=== PATIENT | male | born 1985 | race Caucasian/White ===

== ENCOUNTER 2017-01-29 20:02 | Outpatient (CLI) | payer MEDICARE, MEDICAID | END 2017-01-30 09:15 | disposition home or self-care (01) | LOC: SLEEP 20:02 | PROVIDERS: ATTEND Psychologist | DX: G47.33 Obstructive sleep apnea (adult) (pediatric) (principal); I10 Essential (primary) hypertension | CPT/HCPCS: 95811 ==